=== PATIENT | female | born 2005 | race Two or more races ===

== ENCOUNTER 2024-02-13 18:50 | Emergency (ER) | payer MEDICAID, OTHER ==
[~2024-02-13] VITALS: Ht 162.6 cm; Wt 78.5 kg
[2024-02-13 19:19] VITALS: BP 124/80; RESP 18; TEMP 98; O2SAT 100
[2024-02-13 19:54] LABS: Basophils # (auto) 0 10 ^3/uL (0-0.2); Basophils % (auto) 0.2 % (0.0-2.0); Eosinophils # (auto) 0.1 10 ^3/uL (0-0.8); Eosinophils % (auto) 0.7 % (0.0-7.0); Hematocrit 35.8 % (36.0-46.0); Hemoglobin 11.8 g/dL (12.2-16.2); Lymphocytes # (auto) 1.6 10 ^3/uL (0.4-5.4); Mean Corpuscular Hemoglobin 26.2 pg (28.0-32.0); Mean Corpuscular Hgb Conc. 32.8 g/dL (32.0-36.0); Mean Corpuscular Volume 79.8 fL (80.0-100.0); Monocytes # (auto) 0.3 10 ^3/uL (0-1.3); Monocytes % (auto) 4.5 % (0.0-12.0); Neutrophils # (auto) 5.7 10 ^3/uL (1.6-8.6); Neutrophils % (auto) 73.6 % (37.0-80.0); Platelet Count (auto) 282 10^3/uL (140-450); Red Blood Cells 4.49 10^6/uL (4.0-5.20); Red Cell Distribution Width 16.7 % (11.8-14.3); White Blood Cell 7.7 10^3/uL (4.4-10.8)
[2024-02-13 20:14] LABS: Alanine Aminotransferase 12 U/L (7-40); Albumin 4.8 g/dL (3.2-4.8); Alkaline Phosphatase 60 U/L (46-116); Anion Gap 8 (5-15); Aspartate Aminotransferase < 8 U/L (13-40); BUN/Creatinine Ratio 10.8 (10.0-20.0); Bilirubin, Total 0.3 mg/dL (0.2-1.0); Blood Alcohol 3.5 mg/dL (<10); Blood Urea Nitrogen 8 mg/dL (9-23); Calcium 9.1 mg/dL (8.7-10.4); Carbon Dioxide 22 mmol/L (20-30); Chloride 107 mmol/L (98-107); Glucose 125 mg/dL (74-106); Potassium 3.7 mmol/L (3.5-5.1); Sodium 137 mmol/L (136-145); Total Protein 7.7 g/dL (5.7-8.2)
[2024-02-13 20:48] VITALS: PULSE 79
[2024-02-13 21:39] LABS: Urine Bacteria None Seen /hpf (None Seen)
[2024-02-13 21:55] LABS: Urine Blood Negative /uL (Negative); Urine Clarity Clear (Clear); Urine Color Light-Yellow (Yellow); Urine Mucus FEW (None Seen); Urine Protein, UAD TRACE (Negative); Urine Specific Gravity 1.022 (1.001-1.035); Urine Urobilinogen Normal (Negative); Urine WBC 1 /hpf (0 - 5)
[2024-02-13 21:58] LABS: Amphetamine Screen, Urine Neg (NEGATIVE); Barbiturate Scree,Urine Neg (NEGATIVE); Benzodiazephine Screen, Urine Neg (NEGATIVE); Cannabinoid Screen, Urine Pos (NEGATIVE); Cocaine Screen, Urine Neg (NEGATIVE); Opiate Scree,Urine Neg (NEGATIVE); Phencyclidine Screen, Urine Neg (NEGATIVE)
[2024-02-13] MEDS ORDERED: PREN-96 PO (22:11)
[2024-02-13] MEDS ORDERED: ZOFR4T PO (22:15)
== END 2024-02-13 23:38 | disposition home or self-care (01) ==
LOC: ER 18:50
DX: O26.891 Other specified pregnancy related conditions, first trimester (principal); R10.2 Pelvic and perineal pain; R55 Syncope and collapse; R42 Dizziness and giddiness; R51.9 Headache, unspecified; Z3A.01 Less than 8 weeks gestation of pregnancy; Z79.899 Other long term (current) drug therapy
CPT/HCPCS: 36415; 76801; 80053; 80307; 80320; 81001; 82962; 84484; 84702; 85025; 93005

== ENCOUNTER 2024-07-22 15:50 | Observation (INO) | payer OTHER, MEDICAID ==
[~2024-07-22] VITALS: Ht 157.5 cm; Wt 92.5 kg
[~2024-07-22 15:50] MED LIST: PREN-96 PO; ZOFR4T PO
[2024-07-22] MEDS ORDERED: FERR325T24 PO (17:15)
[2024-07-22] MEDS: BETAMETHASONE ACET (30mg/5ml) 5ml Vial 6mg/ml IM ONE (17:34)
--- NOTE | 2024-07-22 21:46 | DVHDS2 ---
Physician Discharge Progress N Final Diagnosis: short cervix Operations or Procedures: Operations or Procedures 18yo IUP@28.4wks was sent from Dr. Hayward's office for a short cervix of 2.8cm. Dr. Hayward wants pt to get betamethasone. VSS NST reactive Betamethasone IM given Dr. Wade consulted, agrees wit POC. FKC/PTL precautions reviewed. Condition on Discharge: Stable Disposition: Home Discharge Instructions: Diet: Regular Activity: See Comment Activity comment: pelvic rest Medications: see med list Follow Up Care: Specialist: f/u on 07/23/24 for second dose of betamethasone Discharge Statement: "Patient was advised to return to the ER or call 911 if any headaches, dizziness, shortness of breath, chest pain, abdominal pain, bleeding, fevers, or worsening of medical condition. Patient was counseled about treatment plan, medications, possible side effects, patientverbalized understanding. All questions were answered to the best of my ability. This discharge took greater then 30 minutes in planning, reviewing documentation, counseling the patient, and discussing with other team members." Visit Coding OBGYN Date of Service: Jul 22, 2024 Billing Provider: PILY BRUNO CNM DESK CLERK Common Visit Codes: [id number] OBS CARE (HIGH) DESK CLERK Procedure Codes: 56961-58- NON-STRESS TEST PILY BRUNO CNM Jul 22, 2024 21:46
[2024-07-23] MEDS ORDERED: NIFE10CA52 PO ×2 (01:07)
== END 2024-07-22 17:50 | disposition home or self-care (01) ==
LOC: UNDOADMOB 15:50 → LDRP 15:50 → UNDODISOB 17:50
PROVIDERS: ADMIT Obstetrics & Gynecology; ATTEND Obstetrics & Gynecology
DX: O26.873 Cervical shortening, third trimester (principal); O62.9 Abnormality of forces of labor, unspecified; Z98.890 Other specified postprocedural states; Z79.899 Other long term (current) drug therapy; Z3A.28 28 weeks gestation of pregnancy
CPT/HCPCS: 59025; 81002; 94760; 96372; G0378; J0702

== ENCOUNTER 2024-07-22 23:50 | Observation (INO) | payer MEDICAID ==
[~2024-07-22] VITALS: Ht 162.6 cm; Wt 93.0 kg
[~2024-07-22 23:50] MED LIST changes: +FERR325T24 PO
[2024-07-23] MEDS ORDERED: LACTATED RINGER'S 1,000 ML IV SCH (00:30)
[2024-07-23] MEDS: LACTATED RINGER'S 1,000 ML IV ONE (00:46)
[2024-07-23] MEDS: NIFEdipine 10 MG CAP PO ONE (00:59)
[2024-07-23] MEDS ORDERED: NIFE10CA52 PO ×2 (01:07)
--- NOTE | 2024-07-23 01:26 | DVHDS2 ---
Physician Discharge Progress N Final Diagnosis: short cervix/PTL Operations or Procedures: Operations or Procedures S: 18yo IUP@28.5wks presents to OB triage with c/o nausea and lighth eadedness when laying flat on her back at home. Also reports two UCs at 2114 and 2244 with 5 out of 10 pain. Pt was in triage earlier for first dose of betamethasone per Dr. Hayward's recommendation for short cervix of 2.8cm. Denies LOF/VB/YANEZ/vision changes/RUQ pain. Endorses +FM. PNC with Dr. Wade, next visit on sunday along with appt with Dr. Hayward on sunday. O: VSS NST reactive TOCO: no UCs noted Abdomen soft upon palpation Procardia 10mg PO and 1L LR IV bolus given per Dr. Wade's order A: 18yo IUP@28.5wks Short cervix PTL P: D/C home Pt instructed not to lay flat on her back as it can compromise blood flow to her and fetus. Pt verbalized understanding. Rx sent for procardia 10mg PO q4hrs per Dr. Wade's order Pt scheduled to return to [facility] on 07/[facility]/24 at 1700 for second dose of betamethasone IM. FKC/PTL precautions reviewed. Condition on Discharge: Stable Disposition: Home Discharge Instructions: Diet: Regular Activity: Light activity Activity comment: pelvic rest Follow Up/Referral: Please keep all follow up appointments with OBGYN Medications: see med list Follow Up Care: Specialist: Pt scheduled to [facility] to [facility] on 07/[facility]/24 at 1700 for second dose of betamethasone IM. Discharge Statement: "Patient was advised to return to the ER or call 911 if any headaches, dizziness, shortness of breath, chest pain, abdominal pain, bleeding, fevers, or worsening of medical condition. Patient was counseled about treatment plan, medications, possible side effects, patientverbalized understanding. All questions were answered to the best of my ability. This discharge took greater then 30 minutes in planning, reviewing documentation, counseling the patient, and discussing with other team members." Visit Coding OBGYN Date of Service: Jul 23, 2024 Billing Provider: PILY BRUNO CNM CHIEF NURSING EXECUTIVE Common Visit Codes: [id number] OBS CARE (HIGH) CHIEF NURSING EXECUTIVE Procedure Codes: 63453-11- NON-STRESS TEST PILY BRUNO CNM Jul 23, 2024 01:26
== END 2024-07-23 01:22 | disposition home or self-care (01) ==
LOC: LDRP 23:50
PROVIDERS: ADMIT Obstetrics & Gynecology; ATTEND Obstetrics & Gynecology
DX: O26.873 Cervical shortening, third trimester (principal); O26.893 Other specified pregnancy related conditions, third trimester; R42 Dizziness and giddiness; R11.0 Nausea; Z98.890 Other specified postprocedural states; Z79.899 Other long term (current) drug therapy; Z3A.28 28 weeks gestation of pregnancy
CPT/HCPCS: 59025; 81002; 94760; 96360; G0378

== ENCOUNTER 2024-07-23 07:32 | Observation (INO) | payer OTHER, MEDICAID ==
[~2024-07-23] VITALS: Ht 162.6 cm; Wt 92.5 kg
[~2024-07-23 07:32] MED LIST changes: +NIFE10CA52 PO
[2024-07-23] MEDS: BETAMETHASONE ACET (30mg/5ml) 5ml Vial 6mg/ml IM ONE (17:17)
--- NOTE | 2024-07-23 21:31 | DVHDS2 ---
Physician Discharge Progress N Final Diagnosis: Short Cervix Operations or Procedures: Operations or Procedures 18yo IUP@28+wks. Pt denies UCs/LOF/VB, +FM, taking procardia 10mg q4hrs. VSS NST reactive Second dose of betamethasone given FKC/PTL precautions reviewed Condition on Discharge: Stable Disposition: Home Discharge Instructions: Diet: Regular Activity: Light activity Activity comment: pelvic rest Follow Up/Referral: F/U with provider Medications: see med list Follow Up Care: Specialist: f/u in 1wk Discharge Statement: "Patient was advised to return to the ER or call 911 if any headaches, dizziness, shortness of breath, chest pain, abdominal pain, bleeding, fevers, or worsening of medical condition. Patient was counseled about treatment plan, medications, possible side effects, patientverbalized understanding. All questions were answered to the best of my ability. This discharge took greater then 30 minutes in planning, reviewing documentati on, counseling the patient, and discussing with other team members." Visit Coding OBGYN Date of Service: Jul 23, 2024 Billing Provider: PILY BRUNO CNM NUCLEAR MEDICAL TECHNOLOGIST Common Visit Codes: 08166-[id number] OBS CARE (HIGH) NUCLEAR MEDICAL TECHNOLOGIST Procedure Codes: 36859-90- NON-STRESS TEST PILY BRUNO CNM Jul 23, 2024 21:31
== END 2024-07-23 17:47 | disposition home or self-care (01) ==
LOC: LDRP 16:37
PROVIDERS: ADMIT Obstetrics & Gynecology; ATTEND Obstetrics & Gynecology
DX: O26.872 Cervical shortening, second trimester (principal); Z3A.28 28 weeks gestation of pregnancy; Z79.899 Other long term (current) drug therapy
CPT/HCPCS: 59025; 81002; 96372; G0378

== ENCOUNTER 2024-07-29 09:22 | Observation (INO) | payer OTHER, MEDICAID ==
[~2024-07-29 09:22] MED LIST changes: -ZOFR4T PO
--- NOTE | 2024-07-29 11:38 | DVHDS2 ---
Physician Discharge Progress N Final Diagnosis: ptl ,short cx Operations or Procedures: Operations or Procedures nst 29wks Commentary: Commentary seen by mariana Condition on Discharge: Good Disposition: Home Discharge Instructions: Diet: Regular Activity: Light activity Follow Up/Referral: [facility] in [facility] Sunday[facility] 05 at 8:00 am for NST. Medications: na Follow Up Care: Specialist: 1w Discharge Statement: "Patient was advised to return to the ER or call 911 if any headaches, dizziness, shortness of breath, chest pain, abdominal pain, bleeding, fevers, or worsening of medical condition. Patient was counseled about treatment plan, medications, possible side effects, patientverbalized understanding. All questions were answered to the best of my ability. This discharge took greater then 30 minutes in planning, reviewing documentation, counseling the patient, and discussing with other team members." Visit Coding OBGYN Date of Service: Jul 29, 2024 Billing Provider: ZHEN PATEL DO COMPUTATIONAL THEORY SCIENTIST Common Visit Codes: [id number] INP/OBS CARE (HIGH) COMPUTATIONAL THEORY SCIENTIST Consultation Codes: 86188-[id number] CONSULT <40MIN COMPUTATIONAL THEORY SCIENTIST Procedure Codes: 21209-52- NON-STRESS TEST ZHEN PATEL DO Jul 29, 2024 11:38
== END 2024-07-29 10:10 | disposition home or self-care (01) ==
LOC: LDRP 09:22
PROVIDERS: ADMIT Obstetrics & Gynecology; ATTEND Obstetrics & Gynecology
DX: O60.03 Preterm labor without delivery, third trimester (principal); O26.873 Cervical shortening, third trimester; Z98.890 Other specified postprocedural states; Z79.899 Other long term (current) drug therapy; Z3A.29 29 weeks gestation of pregnancy
CPT/HCPCS: 59025; 81002; 94760; G0378

== ENCOUNTER 2024-08-05 08:00 | Observation (INO) | payer OTHER, MEDICAID ==
--- NOTE | 2024-08-05 10:16 | DVHDS2 ---
Physician Discharge Progress N Final Diagnosis: testing for short cervix Operations or Procedures: Operations or Procedures 18yo IUP@25.5wks has short cervix (checked in office last week, 1.9cm, has another appt with Dr. Wade today) VSS NST reactive (verified by 2 RNs) FKC/PTL precautions reviewed Dr. Wade consulted, agrees with POC. Condition on Discharge: Stable Disposition: Home Discharge Instructions: Diet: Regular Activity: Light activity Activity comment: pelvic rest Follow Up/Referral: go to Dr. Wade appt as scheduled today Medications: see med list Follow Up Care: Specialist: f[facility] to [facility] Discharge Statement: "Patient was advised to return to the ER or call 911 if any headaches, dizziness, shortness of breath, chest pain, abdominal pain, bleeding, fevers, or worsening of medical condition. Patient was counseled about treatment plan, medications, possible side effects, patientverbalized understanding. All questions were answered to the best of my ability. This discharge took greater then 30 minutes in planning, reviewing documentation, counseling the patient, and discussing with other team members." Visit Coding OBGYN Date of Service: Aug 05, 2024 Billing Provider: PILY BRUNO CNM TUTORING MANAGER Common Visit Codes: [id number] OBS CARE (HIGH) TUTORING MANAGER Procedure Codes: 96947-68- NON-STRESS TEST PILY BRUNO CNM Aug 05, 2024 10:16
== END 2024-08-05 09:00 | disposition home or self-care (01) ==
LOC: LDRP 08:00
PROVIDERS: ADMIT Obstetrics & Gynecology; ATTEND Obstetrics & Gynecology
DX: O26.872 Cervical shortening, second trimester (principal); Z3A.25 25 weeks gestation of pregnancy; Z79.899 Other long term (current) drug therapy
CPT/HCPCS: 81002; 94760; G0378

== ENCOUNTER 2024-08-12 06:28 | Observation (INO) | payer OTHER, MEDICAID ==
--- NOTE | 2024-08-13 10:18 | DVHDS2 ---
Physician Discharge Progress N Final Diagnosis: testing for short cervix Operations or Procedures: Operations or Procedures 18yo IUP@31wks, denies UCs/VB/LOF, last CVL in Dr. Wade's office was 2.5cm. She has appt with Dr. Wade next week. VSS NST reactive (verified by 2 RNs) TOCO: no UCs OB sono: CVL 2.2cm FKC/PTL precautions reviewed. Dr. Wade consulted, agrees with POC. Condition on Discharge: Stable Disposition: Home Discharge Instructions: Diet: Regular Activity: See Comment Activity comment: pelvic rest Medications: see med list Follow Up Care: Specialist: f/u in 1 week for NST/BPP Discharge Statement: "Patient was advised to return to the ER or call 911 if any headaches, dizziness, shortness of breath, chest pain, abdominal pain, bleeding, fevers, or worsening of medical condition. Patient was counseled about treatment plan, medications, possible side effects, patientverbalized understanding. All questions were answered to the best of my ability. This discharge took greater then 30 minutes in planning, reviewing documentation, counseling the patient, and discussing with other team members." Visit Coding OBGYN Date of Service: Aug 13, 2024 Billing Provider: PILY BRUNO CNM CHIEF CONTROLLER TOWER Common Visit Codes: [id number] OBS CARE (HIGH) CHIEF CONTROLLER TOWER Procedure Codes: 28318-67- NON-STRESS TEST PILY BRUNO CNM Aug 13, 2024 10:18
--- NOTE | 2024-08-13 10:20 | DVH ---
OB ULTRASOUND <14 WEEKS: HISTORY: short cervix TECHNIQUE: Multiple real-time grayscale sonographic images of the pelvis with duplex Doppler color f low, spectral and M-mode analysis. TRANSDUCERS: Transabdominal COMPARISON: None FINDINGS/IMPRESSION: Cephalic presentation. Fundal placenta. heart rate 134 beats per minute. NYA measures 12.8 cm. Cervix is shortened measuring 2.2 cm. Question of possible nuchal cord. Close clinical and sonographic follow-up advised.
== END 2024-08-13 10:22 | disposition home or self-care (01) ==
LOC: LDRP 08-13 08:46
PROVIDERS: ADMIT Obstetrics & Gynecology; ATTEND Obstetrics & Gynecology
DX: O26.873 Cervical shortening, third trimester (principal); Z3A.31 31 weeks gestation of pregnancy; Z98.890 Other specified postprocedural states; Z79.899 Other long term (current) drug therapy
CPT/HCPCS: 59025; 76815; 76817; 81002; 94760; G0378

== ENCOUNTER 2024-08-14 21:37 | Observation (INO) | payer OTHER, MEDICAID ==
[~2024-08-14] VITALS: Ht 162.6 cm; Wt 93.4 kg
--- NOTE | 2024-08-14 22:49 | DVH ---
ULTRASOUND BIOPHYSICAL PROFILE CLINICAL HISTORY: DECREASED MOVEMENT COMPARISON: 08/13/2024 TECHNIQUE: Real-time grayscale, color flow and M-mode imaging of the gravid uterus is performed. FINDINGS: Single living intrauterine gestation. Cephalic presentation. heart rate 133 beats per minute. Placenta is fundal. No definite evidence of abruption or previa at this time. The cervix measures a pproximately 2.6 cm in length and appears closed. Amniotic fluid index: 12.1 cm Biophysical profile: 8 out of 8. (2 breathing, 2 activity, 2 tone, 2 NYA) IMPRESSION: Single living intrauterine gestation as above. Biophysical profile scoring 8 out of 8.
--- NOTE | 2024-08-14 23:10 | DVHDS2 ---
Physician Discharge Progress N Final Diagnosis: wellbeing established Secondary Diagnosis: short cervix Operations or Procedures: Operations or Procedures S: 18yo IUP@31.6wks presents to OB triage with c/o DFM since yesterday. She had 5 bottles of water to drink today then had ice water on the drive here, now feels baby moving. Denies UCs/LOF/VB. PNC with Dr. Wade, complicated by short cervix. O: VSS NST reactive TOCO: no UCs A: 18yo IUP@31.6wks wellbeing established short cervix P: D/C home FKC/PTL precautions reviewed Dr. Wade consulted, agrees with POC Other Interventions Other Interventions [place] [id number] Ph: [phone] DIAGNOSTIC IMAGING Diagnostic Imaging Report : [id number] Signed PATIENT: SHIRA SALMERON ACCT: [id number] UNIT: [id number] : 2005 LOC: [facility] ROOM / BED: TRIAGE1 / A AGE / SEX: 18 / F ADM STATUS: ADM IN SERVICE 43 ORDERING PHYSICIAN: PILY BRUNO CNM PROCEDURE(s): BPP - BIOPHYSICAL PROFILE REASON: DECREASED MOVEMENT ORDER NUMBER(s): [id number], ACCESSION NUMBER(s): [id number] ULTRASOUND BIOPHYSICAL PROFILE CLINICAL HISTORY: DECREASED MOVEMENT COMPARISON: 08/13/2024 TECHNIQUE: Real-time grayscale, color flow and M-mode imaging of the gravid uterus is performed. FINDINGS: Single living intrauterine gestation. Cephalic presentation. heart rate 133 beats per minute. Placenta is fundal. No definite evidence of abruption or previa at this time. The cervix measures approximately 2.6 cm in length and appears closed. Amniotic fluid index: 12.1 cm Biophysical profile: 8 out of 8. (2 breathing, 2 activity, 2 tone, 2 NYA) IMPRESSION: Single living intrauterine gestation as above. Biophysical profile scoring 8 out of 8. ATED BY: CRISTHIAN CEDILLO MD DICTATED DATE/TIME: 08/14/245 SIGNED BY: CRISTHIAN CEDILLO MD SIGNED DATE/TIME: 08/14/24 2247 CC: Condition on Discharge: Stable Disposition: Home Discharge Instructions: Diet: Regular Activity: See Comment Activity comment: pelvic rest Medications: see med list Follow Up Care: Specialist: f/u on 08/18/24 as scheduled for NST/BPP Discharge Statement: "Patient was advised to return to the ER or call 911 if any headaches, dizziness, shortness of breath, chest pain, abdominal pain, bleeding, fevers, or worsening of medical condition. Patient was counseled about treatment plan, medications, possible side effects, patientverbalized understanding. All questions were answered to the best of my ability. This discharge took greater then 30 minutes in planning, reviewing documentation, counseling the patient, and discussing with other team members." Visit Coding OBGYN Date of Service: Aug 14, 2024 Billing Provider: PILY BRUNO CNM MANAGER INTERVENTIONAL Common Visit Codes: [id number] OBS CARE (HIGH) MANAGER INTERVENTIONAL Procedure Codes: 60645-92- NON-STRESS TEST PILY BRUNO CNM Aug 14, 2024 23:10
== END 2024-08-14 23:24 | disposition home or self-care (01) ==
LOC: LDRP 21:37
PROVIDERS: ADMIT Obstetrics & Gynecology; ATTEND Obstetrics & Gynecology
DX: O36.8130 Decreased fetal movements, third trimester, not applicable or unspecified (principal); O26.873 Cervical shortening, third trimester; Z3A.31 31 weeks gestation of pregnancy; Z79.899 Other long term (current) drug therapy; Z98.890 Other specified postprocedural states
CPT/HCPCS: 59025; 76819; 81002; G0378; 76818

== ENCOUNTER 2024-09-20 10:08 | Observation (INO) | payer OTHER, MEDICAID ==
[~2024-09-20] VITALS: Ht 60 cm; Wt 72.6 kg
[2024-09-20 11:02] LABS: Basophils # (auto) 0 10 ^3/uL (0-0.2); Eosinophils # (auto) 0 10 ^3/uL (0-0.8); Eosinophils % (auto) 0.6 % (0.0-7.0); Hemoglobin 8.1 g/dL (12.2-16.2); Lymphocytes # (auto) 1.3 10 ^3/uL (0.4-5.4); Mean Corpuscular Hgb Conc. 30.6 g/dL (32.0-36.0); Monocytes # (auto) 0.5 10 ^3/uL (0-1.3); Neutrophils # (auto) 4.9 10 ^3/uL (1.6-8.6)
[2024-09-20 11:03] LABS: Basophils % (auto) 0.4 % (0.0-2.0); Hematocrit 26.3 % (36.0-46.0); Lymphocytes % (auto) 19.2 % (10.0-50.0); Mean Corpuscular Hemoglobin 20.2 pg (28.0-32.0); Mean Corpuscular Volume 65.9 fL (80.0-100.0); Monocytes % (auto) 7.1 % (0.0-12.0); Neutrophils % (auto) 72.7 % (37.0-80.0); Nucleated Red Blood Cells % 0.1 %; Platelet Count (auto) 180 10^3/uL (140-450); Red Blood Cells 3.99 10^6/uL (4.0-5.20); Red Cell Distribution Width 20.2 % (11.8-14.3); White Blood Cell 6.8 10^3/uL (4.4-10.8)
[2024-09-20 14:11] VITALS: BP 123/74; PULSE 106; RESP 18; TEMP 98
[2024-09-20 14:25] VITALS: BP 122/75; PULSE 109; RESP 18; TEMP 98.5
[2024-09-20 14:26] VITALS: BP 122/75; PULSE 109; RESP 18; TEMP 98.5
[2024-09-20 16:14] VITALS: BP 120/72; PULSE 87; RESP 18; TEMP 98.5
[2024-09-20 16:37] VITALS: BP 122/69; PULSE 95; RESP 18; TEMP 98.5
[2024-09-20 16:52] VITALS: BP 118/70; PULSE 99; RESP 18; TEMP 98.5
--- NOTE | 2024-09-24 14:46 | DVHDS2 ---
Physician Discharge Progress N Final Diagnosis: anemia,ptl Operations or Procedures: Operations or Procedures 2u prbc given ,nst reviewed reactive Condition on Discharge: Good Disposition: Home Discharge Instructions: Diet: Regular Activity: No Restrictions, As Tolerated Medications: na Follow Up Care: Specialist: 1w Discharge Statement: "Patient was advised to return to the ER or call 911 if any headaches, dizziness, shortness of breath, chest pain, abdominal pain, bleeding, fevers, or worsening of medical condition. Patient was counseled about treatment plan, medications, possible side effects, patientverbalized understanding. All questions were answered to the best of my ability. This discharge took greater then 30 minutes in planning, reviewing documentation, counseling the patient, and discussing with other team members." Visit Coding OBGYN Date of Service: September 20, 2024 Billing Provider: ZHEN PATEL DO OPERATOR AND TRUCK DRIVER Common Visit Codes: [id number] INP/OBS CARE(HIGH) OPERATOR AND TRUCK DRIVER Procedure Codes: 47174-91- NON-STRESS TEST ZHEN PATEL DO September 24, 2024 14:46
== END 2024-09-20 19:37 | disposition home or self-care (01) ==
LOC: LDRP 10:08
PROVIDERS: ADMIT Obstetrics & Gynecology; ATTEND Obstetrics & Gynecology
DX: O99.013 Anemia complicating pregnancy, third trimester (principal); D64.9 Anemia, unspecified; O60.03 Preterm labor without delivery, third trimester; Z98.890 Other specified postprocedural states; Z79.899 Other long term (current) drug therapy; Z3A.37 37 weeks gestation of pregnancy
CPT/HCPCS: 36415; 36430; 59025; 81002; 85025; 86850; 86900; 86901; 86920; 94760; G0378; P9016

== ENCOUNTER 2024-10-05 10:45 | Inpatient (IN) | payer OTHER, MEDICAID ==
[~2024-10-05] VITALS: Ht 30.5 cm; Wt 0.5 kg
--- NOTE | 2024-10-05 14:25 | DVHHP2 ---
OB CC & HPI Date Date of Admission: October 05, 2024 Patient Identification: : 1 Para: 0 EDC: October 10, 2024 EGA: 39.2 Chief Complaints: Reason for admission: active labor History of Present Complaints 18y G1Po presents in spontaneous labor, regular contractions since this a.m. Denies PROM or vaginal bleeding. Normal movements. Cx 4 to 5cm dilation on admission. Good PNL care w/ Dr Wade, uncomplicated. Past Medical History Cardiac: No pertinent Hx Pulmonary: No pertinent Hx Central Nervous System: No pertinent Hx GI: No pertinent Hx Hemotology/Oncology: Anemia NOS Hepatobiliary: No pertinent Hx Psychiatric: No pertinent Hx Musculoskeletal: No pertinent Hx Rheumotologic: No pertinent Hx Infectious Disease: No peritnent Hx ENT: No pertinent Hx Renal/: No pertinent Hx Endocrine: No pertinent Hx Dermatology: No pertinent Hx Past Surgical History: No pertinent Hx OB History OB History Care: Good Care Ultrasounds: Normal mid trimester US Obstetrical Complications: None Medical Complications: None Other Concerns: Suspected short cervical length in 3rd trimester without labor Allergies: Coded Allergies: NO KNOWN ALLERGIES (Unverified , 08/14/24) Home Meds Active Scripts Nifedipine (PROCARDIA CAPSULE) 10 Mg Cp, 10 MG PO Q4HR for 30 Days, #120 CAP 1 Refill take until [address] Wade Prov:PILY BRUNO CN 07/23/24 Vit W/ Ferrous Fumara ( One Daily) Daily Tab, 1 TAB PO DAILY, #90 TAB 3 Refills Prov:JAVIER KAN PAC 02/13/24 Reported Medications Ferrous Sulfate (Ferrous Sulfate) 325 Mg Tab, 325 MG PO TIDWM for 30 Days 07/22/24 Current Medications Current Medications Medications (Trade) Dose Ordered Sig/Opal Route PRN Reason Start Time Stop Time Status Last Admin Lactated Ringer's 1,000 ml @ 125 mls/hr Q8H IV 10/05/24 13:45 UNV Witch Poppy (Tucks) 1 pad PRN PRN TOP PERINEAL AREA DISCOMFORT 10/05/24 13:45 Sodium Lauryl Sulfate (Phisoderm) 240 ml PRN PRN TOP PERINEAL AREA DISCOMFORT 10/05/24 13:45 Benzocaine (Dermoplast) 1 applic PRN PRN TOP PERINEAL AREA DISCOMFORT 10/05/24 13:45 Lidocaine HCl (Xylocaine) 20 ml ONCE PRN IJ PERINEAL AREA DISCOMFORT 10/05/24 13:45 Review of Systems Constitutional: No symptom reported Ears, Nose, & Throat: No symptom reported Eyes: No symptom reported Pulmonary/Respiratory: No symptom reported Cardiovascular: No symptom reported Gastrointestinal: No symptom reported Genitourinary: No symptom reported Musculoskeletal: No symptom reported Skin: No symptom reported Psychiatric: No symptom reported Endocrine: No symptom reported Hemotologic/Lymphatic: No symptom reported OB Admission Exam Physical Exam Vitals: Afeb VS stable HEENT: NCAT Heart: Rhythm Normal Lungs: Clear Abdomen: Gravid Extremities: Normal Reflexes: Normal Pelvic Exam: RN exam Cervical Dilatation: 4cm Effacement: Other (80) Station: -2 Membranes: Intact Heart Rate: 130's Accelerations: Accelerations Present Decelerations: No Decelerations Short Term Variability: Present Sole Leveling Machine Operator Variability: Average (6-25) Contractions on Admission: < 5 Minutes Apart Intensity: Moderate OB Plan Plan Admitting Diagnosis: 18y G1PO IUP 39.2 wk, Spontaneous labor Category 1 FHR tracing GBS- unknown Plan: Expectant Management Other Plan: Admit for labor and delivery Epidural if desires Informed consent obtained for treatment and delivery Pitocin augmentation as needed. GBS prophylaxis, if results positive or unknown. Visit Coding OBGYN Date of Service: October 05, 2024 Billing Provider: SAM VALDEZ DO METER INSPECTOR Common Visit Codes: [id number] INP/OBS CARE (HIGH) SAM VALDEZ DO October 05, 2024 14:25
[2024-10-05 14:34] LABS: Eosinophils % (auto) 0.5 % (0.0-7.0)
[2024-10-05 14:35] LABS: Basophils # (auto) 0 10 ^3/uL (0-0.2); Basophils % (auto) 0.2 % (0.0-2.0); Eosinophils # (auto) 0.1 10 ^3/uL (0-0.8); Hematocrit 30.6 % (36.0-46.0); Hemoglobin 9.7 g/dL (12.2-16.2); Lymphocytes # (auto) 1.6 10 ^3/uL (0.4-5.4); Lymphocytes % (auto) 15.1 % (10.0-50.0); Mean Corpuscular Hgb Conc. 31.7 g/dL (32.0-36.0); Mean Corpuscular Volume 69.5 fL (80.0-100.0); Monocytes # (auto) 0.7 10 ^3/uL (0-1.3); Monocytes % (auto) 6.2 % (0.0-12.0); Neutrophils # (auto) 8.3 10 ^3/uL (1.6-8.6); Platelet Count (auto) 168 10^3/uL (140-450); Red Cell Distribution Width 24.3 % (11.8-14.3); White Blood Cell 10.6 10^3/uL (4.4-10.8)
[2024-10-05 14:48] LABS: INR 0.92 (0.9-1.15); Partial Thromboplastin Time 26.4 SEC (24.5-34.5); Prothrombin Time 9.8 sec (9.3-11.8)
[2024-10-05 14:50] LABS: Urine Bacteria FEW /hpf (None Seen); Urine Blood Negative /uL (Negative); Urine Clarity Clear (Clear); Urine Color Light-Yellow (Yellow); Urine Protein, UAD Negative (Negative); Urine Squamous Epithelial Cell FEW /hpf (<5); Urine Urobilinogen Normal (Negative); Urine WBC < 1 /HPF (0-5)
[2024-10-05 14:51] LABS: Alanine Aminotransferase < 9 U/L (7-40); Albumin 4.1 g/dL (3.2-4.8); Alkaline Phosphatase 149 U/L (46-116); Anion Gap 12 (5-15); Aspartate Aminotransferase 20 U/L (13-40); BUN/Creatinine Ratio 12.2 (10.0-20.0); Bilirubin, Total 0.4 mg/dL (0.2-1.0); Blood Urea Nitrogen 6 mg/dL (9-23); Calcium 9.2 mg/dL (8.7-10.4); Carbon Dioxide 16 mmol/L (20-31); Chloride 109 mmol/L (98-107); Glucose 80 mg/dL (74-106); Sodium 137 mmol/L (136-145); Total Protein 6.7 g/dL (5.7-8.2)
[2024-10-05 15:16] LABS: Amphetamine Screen, Urine Neg (NEGATIVE); Barbiturate Scree,Urine Neg (NEGATIVE); Benzodiazephine Screen, Urine Neg (NEGATIVE); Cannabinoid Screen, Urine Neg (NEGATIVE); Cocaine Screen, Urine Neg (NEGATIVE); Opiate Scree,Urine Neg (NEGATIVE); Phencyclidine Screen, Urine Neg (NEGATIVE)
[2024-10-05] MEDS: PENICILLIN G POT 5MIL/D5 50ML 50 ML IV ONE (15:38)
[2024-10-05] MEDS: LACTATED RINGER'S 1,000 ML IV SCH (15:39)
--- NOTE | 2024-10-05 18:00 | DVHPN2 ---
OB Labor Progress Note Date and Time Seen Date Seen: October 05, 2024 Time Seen: 17:57 Subjective Patient reports: No new complaints Objective Vital Signs Afeb VSS Monitoring Method Monitoring Method: External Heart Rate Heart Rate Baseline: 130 Heart Rate Variability: Moderate Presence of FHR Accelerations: Yes Presence of FHR Decelerations: No Contractions Contractions Intensity: Strong Membranes Membranes: Ruptured (AROM) Amniotic Fluid Color: Part Mec Vaginal Exam Vaginal Exam Dilation: 8 Vaginal Exam Effacement: 90 Vaginal Exam Station: -2 Vaginal Exam Presentation: VTX Vaginal Exam Show: None Medications Medication - Epidural: No Lab Results Lab Results Current Medications Medications (Trade) Dose Ordered Sig/Opal Start Time Stop Time Status Last Admin Dose Admin Lactated Ringer's 1,000 ml @ 125 mls/hr Q8H 10/05/24 13:45 10/05/24 15:39 125 MLS/HR Witch Poppy (Tucks) 1 pad PRN PRN 10/05/24 13:45 Sodium Lauryl Sulfate (Phisoderm) 240 ml PRN PRN 10/05/24 13:45 Benzocaine (Dermoplast) 1 applic PRN PRN 10/05/24 13:45 Lidocaine HCl (Xylocaine) 20 ml ONCE PRN 10/05/24 13:45 Oxytocin 500 ml @ 999 mls/hr Q31M ONCE 10/05/24 13:45 10/05/24 14:20 DC Oxytocin 500 ml @ 125 mls/hr Q4H ONCE 10/05/24 14:15 10/05/24 18:14 Penicillin G Potassium 50 ml @ 100 mls/hr ONCE ONCE 10/05/24 15:15 10/05/24 15:44 DC 10/05/24 15:38 100 MLS/HR Penicillin G Potassium [id number] units/Dextrose 50 ml @ 100 mls/hr Q4H 10/05/24 19:15 Laboratory Tests Test 10/05/24 14:10 10/05/24 14:07 Range/Units White Blood Count 10.6 4.4-10.8 10^3/uL Red Blood Count 4.40 4.0-5.20 10^6/uL Hemoglobin 9.7 L 12.2-16.2 g/dL Hematocrit 30.6 L 36.0-46.0 % Mean Corpuscular Volume 69.5 L 80.0-100.0 fL Mean Corpuscular Hemoglobin 22.0 L 28.0-32.0 pg Mean Corpuscular Hemoglobin Concent 31.7 L 32.0-36.0 g/dL Red Cell Distribution Width 24.3 H 11.8-14.3 % Platelet Count 168 140-450 10^3/uL Mean Platelet Volume 9.4 6.9-10.8 fL Neutrophils (%) (Auto) 78.0 37.0-80.0 % Lymphocytes (%) (Auto) 15.1 10.0-50.0 % Monocytes (%) (Auto) 6.2 0.0-12.0 % Eosinophils (%) (Auto) 0.5 0.0-7.0 % Basophils (%) (Auto) 0.2 0.0-2.0 % Neutrophils # (Auto) 8.3 1.6-8.6 10 ^3/uL Lymphocytes # (Auto) 1.6 0.4-5.4 10 ^3/uL Monocytes # (Auto) 0.7 0-1.3 10 ^3/uL Eosinophils # (Auto) 0.1 0-0.8 10 ^3/uL Basophils # (Auto) 0 0-0.2 10 ^3/uL Nucleated Red Blood Cells 0.0 % Prothrombin Time 9.8 9.3-11.8 sec Prothrombin Time INR 0.92 0.9-1.15 Activated Partial Thromboplast Time 26.4 24.5-34.5 SEC Sodium Level 137 136-145 mmol/L Potassium Level 4.0 3.5-5.1 mmol/L Chloride Level 109 H 98-107 mmol/L Carbon Dioxide Level 16 L 20-31 mmol/L Anion Gap 12 5-15 Blood Urea Nitrogen 6 L 9-23 mg/dL Creatinine 0.49 L 0.550-1.02 mg/dL Glomerular Filtration Rate Calc 139 >90 mL/min BUN/Creatinine Ratio 12.2 10.0-20.0 Serum Glucose 80 74-106 mg/dL Calcium Level 9.2 8.7-10.4 mg/dL Total Bilirubin 0.4 0.2-1.0 mg/dL Aspartate Amino Transferase (AST) 20 13-40 U/L Alanine Aminotransferase (ALT) < 9 7-40 U/L Alkaline Phosphatase 149 H 46-116 U/L Total Protein 6.7 5.7-8.2 g/dL Albumin 4.1 3.2-4.8 g/dL Treponema pallidum Antibody Non-reactive Negative Urine Color Light-yellow Yellow Urine Clarity Clear Clear Urine pH 7.0 5.0-9.0 Urine Specific Bowie 1.010 1.001-1.035 Urine Protein Negative Negative Urine Ketones Negative Negative Urine Blood Negative Negative /uL Urine Nitrite Negative Negative Urine Bilirubin Negative Negative Urine Urobilinogen Normal Negative mg/dL Urine Leukocyte Esterase 1+ Negative /uL Urine RBC 1 0 - 4 /hpf Urine Microscopic WBC < 1 0-5 /HPF Urine Squamous Epithelial Cells Few <5 /hpf Urine Bacteria Few H None Seen /hpf Urine Glucose Normal Normal mg/dL Urine Opiates Screen Neg NEGATIVE Urine Fentanyl Screen Neg NEGATIVE Urine Barbiturates Screen Neg NEGATIVE Urine Phencyclidine Screen Neg NEGATIVE Urine Amphetamines Screen Neg NEGATIVE Urine Benzodiazepines Screen Neg NEGATIVE Urine Cocaine Screen Neg NEGATIVE Urine Cannabinoids Screen Neg NEGATIVE Assessment Assessment Term IUP with normal progress of labor - s/p Amniotomy, meconium fluid - FHR categ 1 Plan Plan Continue labor mgmt anticipated Peds/Respiratory team to be present for meconium delivery Plan discussed with: Patient, Other (RN) Visit Coding OBGYN Date of Service: October 05, 2024 Billing Provider: SAM VALDEZ DO DONOR RELATIONS MANAGER Common Visit Codes: [id number] INP/OBS CARE(HIGH) SAM VALDEZ DO October 05, 2024 18:00
[2024-10-05] MEDS: PENICILLIN G POTASSIUM 2,500,000 UNITS in D5W 5% 50 ML IV SCH (19:19)
[2024-10-05] MEDS: LIDOCAINE 2%HCL (LOCAL ANESTH.) INJ 20ML MDV ONE (20:30)
[2024-10-05] MEDS: LACT. RINGERS/OXYTOCIN 20UNITS 1,000 ML IV SCH (20:56)
[2024-10-05] MEDS ORDERED: TERBUTALINE SULFATE 1 MG/ML 1ML VIAL SC PRN (21:00)
[2024-10-05] MEDS: ePHEDrine SULFATE 50 MG/ML AMP IV ONE (21:30)
[2024-10-05] MEDS: NALOXONE HCL 0.4 MG/ML VIAL IV ONE (21:30)
[2024-10-05] MEDS: LIDOCAINE HCL 2 %PF INJ 10ML AMP IJ ONE (21:30)
[2024-10-05] MEDS ORDERED: fentaNYL 400mCg/200ml W ROPIVA 200 ML EPI SCH (21:30)
[2024-10-05] MEDS: NALBUPHINE HCL 10 MG/1ml INJECTION IV PRN (22:17)
[2024-10-05] MEDS: ROPIVACAINE HCL 200 ML ONE (22:54)
[2024-10-05] MEDS: fentaNYL CITRATE 100 MCG/2 ML VL IV ONE (22:55)
[2024-10-05] MEDS: LACTATED RINGER'S 1,000 ML IV ONE (22:56)
--- NOTE | 2024-10-05 23:19 | EPIDURAL ---
Anesthesia Procedural Note - Epidural Informed consent obtained?: Yes Medication Administered: Fentanyl 100 mcg Sterile prept drape: Yes Spinal level of insertion: L4-L5 Test dose of lidocaine & Epine: Negative Infusion started: Yes Start time: 22:30 End time: 22:50 Procedure description Procedure description: Called for labor epidural. Chart reviewed, history taken, patient examined at 2230 (BP 134/77 HR 74 spO2 99). Patient is , in labor, requesting epidural. Informed consent for CSE obtained.Sitting position, sterile prep and drape. Time out done at 2232. L4-5 space infiltrated with 1% lido. Epidural needle placed with NATHAN at 7cm. 25G spinal needle +clear CSF. 15mcg fentanyl given IT at 2238 (BP 135/82 HR 83 spO2 99). Epidural catheter secured at 13cm. Aspiration and test dose (3cc 1.5% lido with epi) negative at 2239. 85mcg fentanyl given via epidural at 2240 (BP 131/83 HR 83 spO2 98). Patient reports good pain relief. 0.2% ropivacaine infusion started at 2250 (BP 118/63 HR 72 spO2 99). Will follow as needed. MILLY RANDALL MD October 05, 2024 23:19
--- NOTE | 2024-10-06 02:49 | LDN2 ---
Labor and Delivery Note Date 10/06/24 Age 18 1 Para 1 EGA 39.4 wk Diagnosis Term in labor s/p Vaginal Delivery: VTX Vacuum Assisted: No Placenta: Spontaneous Sex: Female Weight Pending Apgars 9 Amniotic Fluid: Meconium Stained Anesthesia Epidural Episiotomy: No Repaired with 2-0 Vicryl 1st deg vaginal lac EBL 300 mL Labs Blood Bank 10/05/24 14:10: Blood Type A POSITIVE Complications None Visit Coding OBGYN Date of Service: October 06, 2024 Billing Provider: SAM VALDEZ DO [employer] Common Visit Codes: PROCEDURE ONLY [employer] Procedure Codes: 43084-CEHAP OB CARE,VAG DELIVERY SAM VALDEZ DO October 06, 2024 02:49
[2024-10-06] MEDS: LACT. RINGERS/OXYTOCIN 20UNITS 500 ML IV ONE ×2 (02:52)
[2024-10-06] MEDS ORDERED: ACETAMINOPHEN 325 MG TAB PO PRN (06:15)
[2024-10-06] MEDS ORDERED: IBUPROFEN 600 MG TAB PO PRN (06:15)
[2024-10-06] MEDS: LIDOCAINE 2%HCL (LOCAL ANESTH.) INJ 20ML MDV IJ PRN (06:30)
[2024-10-06] MEDS: PHISODERM TOP SOLN 240ML BTL TOP PRN (06:30)
[2024-10-06] MEDS: DERMOPLAST 60ML BOTTLE TOP PRN (06:30)
[2024-10-06] MEDS: WITCH HAZEL-GLYCERIN PAD TOP PRN (06:30)
[2024-10-06 07:00] VITALS: BP 110/67; PULSE 90; RESP 16; TEMP 99; O2SAT 98
[2024-10-06 09:03] LABS: Basophils # (auto) 0 10 ^3/uL (0-0.2); Eosinophils # (auto) 0 10 ^3/uL (0-0.8); Hemoglobin 8.7 g/dL (12.2-16.2); Mean Corpuscular Hemoglobin 21.7 pg (28.0-32.0); Mean Corpuscular Hgb Conc. 31.7 g/dL (32.0-36.0); Neutrophils # (auto) 8.7 10 ^3/uL (1.6-8.6); White Blood Cell 11.1 10^3/uL (4.4-10.8)
[2024-10-06 09:05] LABS: Basophils % (auto) 0.1 % (0.0-2.0); Eosinophils % (auto) 0.3 % (0.0-7.0); Hematocrit 27.4 % (36.0-46.0); Lymphocytes # (auto) 1.4 10 ^3/uL (0.4-5.4); Lymphocytes % (auto) 12.8 % (10.0-50.0); Mean Corpuscular Volume 68.4 fL (80.0-100.0); Monocytes % (auto) 8.9 % (0.0-12.0); Neutrophils % (auto) 77.9 % (37.0-80.0); Platelet Count (auto) 147 10^3/uL (140-450)
[2024-10-06 09:06] LABS: Red Cell Distribution Width 24.3 % (11.8-14.3)
[2024-10-06 09:51] LABS: Anisocytosis Moderate; Hypochromia Moderate; Platelet Estimate Adequate
[2024-10-06 09:52] LABS: Ovalocytes FEW
[2024-10-06 09:59] LABS: Target Cell FEW
[2024-10-06 11:00] VITALS: BP 123/83; PULSE 93; RESP 16; TEMP 99.4; O2SAT 99
[2024-10-06 15:00] VITALS: BP 122/76; PULSE 91; RESP 16; TEMP 98.4; O2SAT 98
[2024-10-06 19:00] VITALS: BP 119/74; PULSE 84; RESP 17; TEMP 98; O2SAT 97
[2024-10-06 19:15] VITALS: BP 119/76; PULSE 84; RESP 16; TEMP 98; O2SAT 97
[2024-10-06 23:00] VITALS: BP 124/70; PULSE 99; RESP 17; TEMP 98.2; O2SAT 97
[2024-10-06] MEDS: DOCUSATE SOD 100 MG CAP PO SCH (23:10)
[2024-10-07 03:00] VITALS: BP 120/68; PULSE 80; RESP 16; TEMP 98.1; O2SAT 97
[2024-10-07] MEDS ORDERED: IBU600T PO (03:21)
--- NOTE | 2024-10-07 03:21 | DVHDS2 ---
Physician Discharge Progress N Final Diagnosis: Term , delivered Operations or Procedures: Operations or Procedures Condition on Discharge: Stable Disposition: Home Discharge Instructions: Diet: Regular Activity: Light activity Activity comment: Pelvic rest x 6 weeks Follow Up/Referral: [address] Wade Medications: Ibuprofen PRN pain Follow Up Care: Discharge Statement: "Patient was advised to return to the ER or call 911 if any headaches, dizziness, shortness of breath, chest pain, abdominal pain, bleeding, fevers, or worsening of medical condition. Patient was counseled about treatment plan, medications, possible side effects, patientverbalized understanding. All questions were answered to the best of my ability. This discharge took greater then 30 minutes in planning, reviewing documentation, counseling the patient, and discussing with other team members." Visit Coding OBGYN Date of Service: October 07, 2024 Billing Provider: SAM VALDEZ DO [employer] Common Visit Codes: 85293-YIH/OBS DISCH DAY <30MIN SAM VALDEZ DO October 07, 2024 03:21
[2024-10-07 07:00] VITALS: BP 119/72; PULSE 76; RESP 20; TEMP 98.5; O2SAT 98
[2024-10-07 11:00] VITALS: BP 123/67; PULSE 83; RESP 18; TEMP 98.2; O2SAT 97
== END 2024-10-07 13:38 | disposition home or self-care (01) | DRG 806 ==
LOC: LDRP 10:45 → OBSVTOIN 13:51 → LDRP 14:05
PROVIDERS: ADMIT Obstetrics & Gynecology; ATTEND Obstetrics & Gynecology
PROC: 10E0XZZ Delivery of Products of Conception, External Approach (ICD-10-PCS; principal; 2024-10-06)
PROC: 10907ZC Drainage of Amniotic Fluid, Therapeutic from Products of Conception, Via Natural or Artificial Opening (ICD-10-PCS; 2024-10-06)
PROC: 3E0R3BZ Introduction of Anesthetic Agent into Spinal Canal, Percutaneous Approach (ICD-10-PCS; 2024-10-06)
PROC: 00HU33Z Insertion of Infusion Device into Spinal Canal, Percutaneous Approach (ICD-10-PCS; 2024-10-06)
PROC: 0HQ9XZZ Repair Perineum Skin, External Approach (ICD-10-PCS; 2024-10-06)
DX: O77.0 Labor and delivery complicated by meconium in amniotic fluid (principal); O26.873 Cervical shortening, third trimester; Z37.0 Single live birth; O70.0 First degree perineal laceration during delivery; Z3A.39 39 weeks gestation of pregnancy; O99.02 Anemia complicating childbirth
CPT/HCPCS: 36415; 59025; 59409; 62282; 80053; 80307; 81001; 81002; 85025; 85610; 85730; 86780; 86803; 86850; 86900; 86901; 94760; 94762; 96360; 96361; 96365; 96366; 96374; G0378; J2540; J2590; J7060